=== PATIENT | female | born 2000 | race Caucasian/White ===

== ENCOUNTER 2019-03-17 20:16 | Emergency (ER) | payer OTHER ==
--- NOTE | 2019-03-17 20:30 | ER Document Report ---
ED Medical Screen (RME) - General Chief Complaint: Abdominal Pain Stated Complaint: ABDOMINAL PAIN Time Seen by Provider: 03/17/19 20:24 Mode of Arrival: Ambulatory Information source: Patient Notes: Patient presents emergency department with complaints of generalized abdominal pain for the past 4 years. Reports she has a history of IBS reflux anxiety. She was evaluated at the emergency department at [place] and told to follow-up with GI. Patient denies other symptoms such as fever vomiting diarrhea. Denies increased pain after eating. Reports she was on medication for GERD and anxiety but she quit taking the medication for GERD and she has been able to eat pizza and milk without any problems. Denies pain with void. I have greeted and performed a rapid initial assessment of this patient. A comprehensive ED assessment and evaluation of the patient, analysis of test results and completion of the medical decision making process will be conducted by additional ED providers. Dictation of this chart was performed using voice recognition software; therefore, there may be some unintended grammatical errors. - Related Data Allergies/Adverse Reactions: almond Allergy (Verified 03/17/19 20:24) Physical Exam - Vital signs Vitals: Temp Pulse Resp BP Pulse Ox 99.1 F 87 16 122/62 97 03/17/19 20:23 03/17/19 20:23 03/17/19 20:23 03/17/19 20:23 03/17/19 20:23 Course - Vital Signs Vital signs: Temp Pulse Resp BP Pulse Ox 99.1 F 87 16 122/62 97 03/17/19 20:23 03/17/19 20:23 03/17/19 20:23 03/17/19 20:23 03/17/19 20:23
[2019-03-17 20:51] LABS: ABSOLUTE BASOPHILS # (AUTO) 0.1 10^3/uL (0.0-0.2); ABSOLUTE EOSINOPHILS # (AUTO) 0.2 10^3/uL (0.0-0.6); ABSOLUTE LYMPHOCYTES (AUTO) 1.9 10^3/uL (0.5-4.7); ABSOLUTE MONOCYTES (AUTO) 0.3 10^3/uL (0.1-1.4); ABSOLUTE NEUT (AUTO) 4.1 10^3/uL (1.7-8.2); BASOPHILS % (AUTO) 0.8 % (0-2); HEMATOCRIT 41.4 % (36.0-47.0); HEMOGLOBIN 14.2 g/dL (12.0-15.5); LYMPHOCYTES % (AUTO) 29.4 % (13-45); MEAN CORPUSCULAR HEMOGLOBIN 29.5 pg (27.0-33.4); MEAN CORPUSCULAR HGB CONC 34.2 g/dL (32.0-36.0); MEAN CORPUSCULAR VOLUME 86 fl (80-97); MONOCYTES % (AUTO) 4.9 % (3-13); PLATELET COUNT 259 10^3/uL (150-450); RED BLOOD COUNT 4.81 10^6/uL (3.72-5.28); RED CELL DISTRIBUTION WIDTH 12.7 % (11.5-14.0); SEGMENTED NEUTROPHILS % (AUTO) 61.9 % (42-78); TOTAL CELLS COUNTED % (AUTO) 100 %; WHITE BLOOD COUNT 6.6 10^3/uL (4.0-10.5)
[2019-03-17 20:55] LABS: APPEARANCE,URINE CLEAR; BILIRUBIN,URINE NEGATIVE (NEGATIVE); COLOR,URINE YELLOW; GLUCOSE, URINE NEGATIVE (NEGATIVE); KETONES,URINE NEGATIVE (NEGATIVE); LEUKOCYTE ESTERASE,URINE NEGATIVE (NEGATIVE); NITRITE,URINE NEGATIVE (NEGATIVE); PROTEIN,URINE NEGATIVE (NEGATIVE); URINE SPECIFIC GRAVITY 1.019; UROBILINOGEN,URINE NEGATIVE mg/dL (<2.0)
[2019-03-17 21:13] LABS: ALANINE AMINOTRANSFERASE 17 U/L (9-52); ALBUMIN 4.2 g/dL (3.5-5.0); ALKALINE PHOSPHATASE 98 U/L (38-126); ANION GAP 8 (5-19); ASPARTATE AMINO TRANSFERASE 14 U/L (14-36); BILIRUBIN,DIRECT 0.2 mg/dL (0.0-0.4); BILIRUBIN,TOTAL 0.2 mg/dL (0.2-1.3); BLOOD UREA NITROGEN 12 mg/dL (7-20); CALCIUM 8.9 mg/dL (8.4-10.2); CARBON DIOXIDE 24 mmol/L (22-30); CHLORIDE 108 mmol/L (98-107); GLUCOSE 138 mg/dL (75-110); POTASSIUM 4.1 mmol/L (3.6-5.0); SODIUM 140.4 mmol/L (137-145); TOTAL PROTEIN 6.7 g/dL (6.3-8.2)
--- NOTE | 2019-03-17 23:40 | ER Document Report ---
ED General - General Chief Complaint: Abdominal Pain Stated Complaint: ABDOMINAL PAIN Time Seen by Provider: 03/17/19 20:24 Mode of Arrival: Ambulatory Notes: Patient is a 19-year-old female history of anxiety, depression, chronic abdominal pain, presents with 4 months of generalized intermittent abdominal pain. Patient describes the pain as being a cramping, aching, global discomfort that comes and goes. No exacerbating or alleviating factors. States that she is been seen by her primary care doctor regarding this issue, diagnosed with anxiety and irritable bowel syndrome. Nothing is new or different that prompted a visit to the emergency department tonight. Denies fever or constitutional symptoms. Has had some loose stools as well as some nausea and reflux type symptoms. Denies any current pain at the time of my assessment. - Related Data Allergies/Adverse Reactions: almond Allergy (Verified 03/17/19 20:24) Past Medical History - General Information source: Patient - Social History Smoking Status: Never Smoker Frequency of alcohol use: Rare Drug Abuse: None Lives with: Spouse/Significant other Family History: Reviewed & Not Pertinent Patient has suicidal ideation: No Patient has homicidal ideation: No Renal/ Medical History: Denies: Hx Peritoneal Dialysis GI Medical History: Reports: Hx Gastroesophageal Reflux Disease Past Surgical History: Reports: Hx Oral Surgery Review of Systems - Review of Systems Notes: Constitutional: Negative for fever. HENT: Negative for sore throat. Eyes: Negative for visual changes. Cardiovascular: Negative for chest pain. Respiratory: Negative for shortness of breath. Gastrointestinal: Positive for abdominal pain, nausea Genitourinary: Negative for dysuria. Musculoskeletal: Negative for back pain. Skin: Negative for rash. Neurological: Negative for headaches, weakness or numbness. 10 point ROS negative except as marked above and in HPI. Physical Exam - Vital signs Vitals: Temp Pulse Resp BP Pulse Ox 99.1 F 87 16 122/62 97 03/17/19 20:23 03/17/19 20:23 03/17/19 20:23 03/17/19 20:23 03/17/19 20:23 Interpretation: Normal Notes: PHYSICAL EXAMINATION: GENERAL: Well-appearing, well-nourished and in no acute distress. HEAD: Atraumatic, normocephalic. EYES: Pupils equal round and reactive to light, extraocular movements intact, sclera anicteric, conjunctiva are normal. ENT: nares patent, oropharynx clear without exudates. Moist mucous membranes. NECK: Normal range of motion, supple without lymphadenopathy LUNGS: Breath sounds clear to auscultation bilaterally and equal. No wheezes rales or rhonchi. HEART: Regular rate and rhythm without murmurs ABDOMEN: Soft, nontender, normoactive bowel sounds. No guarding, no rebound. No masses appreciated. EXTREMITIES: Normal range of motion, no pitting or edema. No cyanosis. NEUROLOGICAL: No focal neurological deficits. Moves all extremities spontaneously and on command. PSYCH: Normal mood, normal affect. SKIN: Warm, Dry, normal turgor, no rashes or lesions noted. Course - Re-evaluation Re-evalutation: 03/17/19 23:40 Presentation of generalized, intermittent abdominal pain. Long-standing history of the same. Abdominal exam is benign without any focal tenderness. Vitals are normal at the time of arrival. Laboratories are unremarkable without evidence of cystitis, , or leukocytosis. Patient is overall very well in appearance. Based on clinical history and examination I do not suspect an acute appendicitis, tubo-ovarian abscess, related pathology, pelvic inflammatory disease, mesenteric ischemia, or pyelonephritis. Patient is requesting additional medication for sleep at night as she does believe that this contributes to her anxiety and abdominal discomfort. Will be started on trazodone. I have also advised that she should receive a colonoscopy as an outpatient to definitively exclude inflammatory bowel disease. At this time will discharge with return precautions and follow-up recommendations. Verbal discharge instructions given a the bedside and opportunity for questions given. Medication warnings reviewed. Patient is in agreement with this plan and has verbalized understanding of return precautions and the need for primary care follow-up in the next 24-72 hours. - Vital Signs Vital signs: Temp Pulse Resp BP Pulse Ox 99.1 F 87 16 122/62 97 03/17/19 20:23 03/17/19 20:23 03/17/19 20:23 03/17/19 20:23 03/17/19 20:23 - Laboratory Result Diagrams: 03/17/19 20:40 03/17/19 20:40 Laboratory results interpreted by me: 03/17/19 03/17/19 20:40 20:40 Chloride 108 H Glucose 138 H Urine Ascorbic Acid 40 H Discharge - Discharge Clinical Impression: Generalized abdominal pain, Chronic abdominal pain, Nausea Condition: Good Disposition: HOME, SELF-CARE Additional Instructions: You have been seen in the Emergency Department (ED) for abdominal pain. Your evaluation did not identify a clear cause of your symptoms but was generally reassuring. Please follow-up with your primary doctor and consider a colonoscopy to definitively exclude inflammatory bowel disease. Please follow up with your doctor as soon as possible regarding today's emergent visit and the symptoms that are bothering you. Return to the ED if your abdominal pain worsens or fails to improve, you develop bloody vomiting, bloody diarrhea, you are unable to tolerate fluids due to vomiting, fever greater than 101, or other symptoms that concern you. Take the trazodone has been prescribed at night for sleep. Prescriptions: Trazodone HCl 100 mg PO QHS #30 tablet
[2019-03-17] MEDS ORDERED: TRAZODONE HCL 50 MG TABLET PO ONE (23:41)
[2019-03-18 00:03] VITALS: BP 120/60
== END 2019-03-18 00:05 | disposition home or self-care (01) ==
LOC: ER 20:16
DX: R10.84 Generalized abdominal pain (principal); G89.29 Other chronic pain; R11.0 Nausea; F41.9 Anxiety disorder, unspecified; R19.4 Change in bowel habit; Z91.018 Allergy to other foods; Z87.19 Personal history of other diseases of the digestive system
CPT/HCPCS: 36415; 80053; 81001; 81025; 83690; 85025; 99284